=== PATIENT | female | born 1965 | race African-American/Black ===

== ENCOUNTER → 2016-07-24 | Outpatient (CLI) | payer OTHER ==
--- NOTE | ~2016-07-24 | MR84 ---
[facility] A Service of [facility] RADIOLOGY TEXT RESULTS PATIENT: ALBERTO MARINELLI LOCATION: [facility] : 69 UNIT #: [id number] AGE: [address]: TIMBO TAVAREZ MD SEX: F ORDER DR: [id number] [facility] [address] [place], [place] [address] [id number] O MR#: [id number] Acc #: [id number] NAME: ALBERTO MARINELLI : 1965 SEX: F STUDY DATE/TIME: 07/24/2016 20:41 UNIT: [facility] ROOM: STUDY DESCRIPTION: MR Hip Wo Contrast Rt Attending Physician: Timbo Tavarez M.D. Ordering Physician: Physician Non-Staff Primary Care Physician: Prasanna Lambert M.D. [facility] REPORT This report is preliminary unless electronic signature is present. EXAM MRI pelvis, hips, and proximal right thigh without contrast. -attention right hip. DATE OF EXAM: 07/24/2016. COMPARISON Right femur radiographs 07/18/2016. HISTORY Order states tendon tear/rupture. Quad/hip flexor. Please include proximal one-third of femur if possible. History sheet states right hip pain since lifting daughter out of a wheel chair 1 week ago. Noticed an area of pain lateral right hip to the knee. Marked with 2 markers. No reported surgery. Injury 07/17/2016. The hips show no fracture, effusion, arthrosis, or avascular necrosis. The bony pelvis, sacrum, and SI joints are normal. The gluteal tendons and the greater trochanteric bursal regions are unremarkable. There is no muscle atrophy or edema. No hematoma is identified. The quadriceps musculature to the extent included is normal. Small adnexal region cysts are noted bilaterally. The largest is on the right and measures 2.1 x 1.4 x 1.9 cm (transverse by AP by craniocaudal. The cervical nabothian cyst is likely incidental. IMPRESSION 1. No musculoskeletal abnormalities are noted. Quadriceps and flexor complexes are normal. No internal derangement of the hips or fracture. 2. Adnexal cyst detailed above. [facility] A Service of [facility] RADIOLOGY TEXT RESULTS PATIENT: ALBERTO MARINELLI [facility] UNIT #: [id number] AGE: [address]: TIMBO TAVAREZ MD SEX: F ORDER DR: Dictated by... Cammy Leach M.D. THIS IS AN ELECTRONICALLY VERIFIED REPORT Cammy Leach M.D. at 07/27/2016 3:45 PM Thee/johnna TD: 07/27/2016 14:34 JOB #: [id number] MRI [facility]ENTER REPORT Page 1 of 1 COPY
== END | disposition home or self-care (01) ==
LOC: CMRI 19:23
DX: M25.551 Pain in right hip (principal); N85.8 Other specified noninflammatory disorders of uterus
CPT/HCPCS: 73721